=== PATIENT | female | born 2000 | race Caucasian/White ===

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

== ENCOUNTER 2020-04-09 07:07 | Emergency (ER) | payer OTHER ==
[~2020-04-09] VITALS: Ht 157.5 cm; Wt 76.4 kg
[2020-04-09] MEDS ORDERED: PERTUSS(ACELL),DIPH,TET VAC/PF 0.5 ML VIAL IM ONE (07:45)
[2020-04-09 08:29] VITALS: BP 107/69
== END 2020-04-09 08:34 | disposition home or self-care (01) ==
LOC: EMS 07:11
DX: S91.331A Puncture wound without foreign body, right foot, initial encounter (principal); Z91.018 Allergy to other foods; X58.XXXA Exposure to other specified factors, initial encounter; Y93.89 Activity, other specified; Y92.89 Other specified places as the place of occurrence of the external cause; Y99.8 Other external cause status
CPT/HCPCS: 90471; 90715

== ENCOUNTER 2020-09-09 07:42 | Emergency (ER) | payer OTHER ==
[~2020-09-09] VITALS: Ht 157.5 cm; Wt 78.6 kg
[2020-09-09] MEDS ORDERED: ALBUTEROL SULFATE HFA 90 MCG/PUFF 8 GM INHALER IH ONE (08:30)
[2020-09-09] MEDS ORDERED: DOXYCYCLINE HYCLATE 100 MG TABLET PO ONE (09:30)
[2020-09-09 09:31] LABS: COVID AG,FIA SOURCE NASOPHARYNGEAL
[2020-09-09 10:25] VITALS: BP 131/57
[2020-09-09 10:34] LABS: INFLUENZA TYPE A NEGATIVE FOR TYPE A (NEGATIVE); INFLUENZA TYPE B NEGATIVE FOR TYPE B (NEGATIVE)
== END 2020-09-09 10:47 | disposition home or self-care (01) ==
LOC: EMS 07:42
DX: J18.9 Pneumonia, unspecified organism (principal); Z20.822 Contact with and (suspected) exposure to COVID-19; Z88.8 Allergy status to other drugs, medicaments and biological substances
CPT/HCPCS: 71045; 81025; 87426; 87804; 99284; U0003; J3535

== ENCOUNTER 2021-06-18 19:31 | Emergency (ER) | payer OTHER ==
[~2021-06-18] VITALS: Ht 157.5 cm; Wt 81.8 kg
[2021-06-18] MEDS ORDERED: ONDANSETRON HCL 4 MG TABLET PO ONE (22:45)
[2021-06-18 23:07] LABS: BASOPHILS % (AUTO) 0.5 % (0.0-2.0); EOSINOPHILS % (AUTO) 2.5 % (1.0-6.0); HEMATOCRIT 39.3 % (36-46); HEMOGLOBIN 13.6 g/dL (12.0-16.0); LYMPHOCYTES # (AUTO) 3.8 K/uL (1.0-4.8); LYMPHOCYTES % (AUTO) 36.4 % (22.0-44.0); MEAN CORPUSCULAR HEMOGLOBIN 29.6 pg (26.0-34.0); MEAN CORPUSCULAR HGB CONC 34.6 G/dL (31.0-37.0); MEAN CORPUSCULAR VOLUME 86 fL (80-100); MONOCYTES # (AUTO) 0.8 K/uL (0.1-1.0); MONOCYTES % (AUTO) 7.5 % (2.0-9.0); NEUTROPHILS # (AUTO) 5.6 K/uL (1.8-7.7); NEUTROPHILS % (AUTO) 53.1 % (40.0-70.0); PLATELET COUNT (AUTO) 277 K/uL (150-450); RED BLOOD CELL COUNT(AUTO) 4.59 MIL/uL (4.00-5.20)
[2021-06-18 23:10] LABS: COVID AG,FIA SOURCE NASOPHARYNGEAL
[2021-06-18 23:15] LABS: ANION GAP 12 mmol/L (8-16); CARBON DIOXIDE 24 mmol/L (22-29); CHLORIDE 108 mmol/L (98-107); GLOMERULAR FILTR. RATE CALC > 60 mL/min (>60); GLUCOSE,RANDOM 83 mg/dL (70-110); POTASSIUM 4.1 mmol/L (3.5-5.1); SODIUM SERUM 144 mmol/L (136-145); UREA NITROGEN, BLOOD 18 mg/dL (7-18)
[2021-06-18 23:19] LABS: APPEARANCE,URINE CLEAR (CLEAR); BILIRUBIN,URINE NEGATIVE (NEGATIVE); GLUCOSE, URINE (UA) NEGATIVE (NEGATIVE); KETONES,URINE TRACE mg/dL (NEGATIVE); LEUKOCYTE ESTERASE ,URINE NEGATIVE (NEGATIVE); NITRATE,URINE NEGATIVE (NEGATIVE); OCCULT BLOOD,URINE NEGATIVE (NEGATIVE); PH,URINE 6.5 (5.0-8.0); PROTEIN,URINE NEGATIVE (NEGATIVE)
[2021-06-18 23:27] LABS: ALANINE AMINOTRANSFERASE 24 U/L (12-78); ALKALINE PHOSPHATASE 64 U/L (46-116); ASPARTATE AMINOTRANSFERASE 19 U/L (15-37); BILIRUBIN,TOTAL 0.4 mg/dL (0.1-1.0); HCG,QUANTITATIVE 1 mIU/mL (0-6); LIPASE 151 U/L (73-393)
[2021-06-18 23:30] LABS: RBC,URINE None Seen /HPF (0-2); WBC,URINE 0-2 /HPF (0-5)
[2021-06-18 23:31] LABS: BACTERIA,URINE Rare /HPF (None Seen)
[2021-06-19] VITALS: BP 124/70
== END 2021-06-19 00:45 | disposition home or self-care (01) ==
LOC: EMS 19:37
DX: L50.9 Urticaria, unspecified (principal); B34.9 Viral infection, unspecified; Z20.822 Contact with and (suspected) exposure to COVID-19
CPT/HCPCS: 36415; 80053; 81001; 83690; 84702; 85025; 87426; 99283; Q0162